=== PATIENT | female | born 1990 ===

== ENCOUNTER 2021-09-20 08:45 | Inpatient (IN) | payer OTHER ==
[~2021-09-20] VITALS: Ht 162.6 cm; Wt 3.2 kg
[2021-09-20] MEDS ORDERED: PRENATAL CAPLE1 EAC1 PO (22:40)
== END 2021-09-23 12:13 | disposition home or self-care (01) | DRG 788 ==
LOC: LDR 20:17 → OB/GYN 20:17 → O/R 22:41 → OB/GYN 22:57
PROVIDERS: ADMIT Obstetrics & Gynecology; ATTEND Obstetrics & Gynecology
PROC: 4A1HXFZ Monitoring of Products of Conception, Cardiac Rhythm, External Approach (ICD-10-PCS; 2021-09-20)
PROC: 10D00Z1 Extraction of Products of Conception, Low, Open Approach (ICD-10-PCS; principal; 2021-09-20 20:00)
DX: O82 Encounter for cesarean delivery without indication (principal); Z37.0 Single live birth; Z3A.40 40 weeks gestation of pregnancy

== ENCOUNTER → 2024-08-05 | Outpatient (CLI) | payer OTHER ==
[~2024-08-05] MED LIST: PRENATAL CAPLE1 EAC1 PO
== END | disposition home or self-care (01) ==
LOC: NST 15:55
PROVIDERS: ATTEND Obstetrics & Gynecology
DX: Z34.83 Encounter for supervision of other normal pregnancy, third trimester (principal)

== ENCOUNTER 2024-09-01 07:45 | Inpatient (IN) | payer OTHER ==
[~2024-09-01] VITALS: Ht 162.6 cm; Wt 81.6 kg
[2024-09-01 09:33] LABS: HEMATOCRIT 41.3 % (36.0-45.00); HEMOGLOBIN 14.5 g/dL (12.0-15.00); MEAN CELL VOLUME 99.5 fL (80.00-100.00); MEAN CORPUSCULAR HEMOGLOBIN 34.9 pg (27.00-32.0); MEAN CORPUSCULAR HGB CONC 35.1 g/dl (32.0-36.0); PLATELET COUNT 216 K/uL (150-450); RED BLOOD COUNT 4.15 M/uL (4.00-6.00); RED CELL DISTRIBUTION WIDTH 13.6 % (11.5-14.5)
[2024-09-01 09:35] LABS: PH,URINE 7.5 (5.0-8.0); URINE APPEARANCE Clear; URINE BILIRRUBIN Negative (NEGATIVE); URINE BLOOD Negative; URINE COLOR Yellow; URINE GLUCOSE Negative (NEGATIVE); URINE KETONE Negative (NEGATIVE); URINE LEUKOCYTE Trace; URINE NITRATE Negative; URINE PROTEIN Trace (NEGATIVE); URINE UROBILINOGEN 0.2 E.U./dl
[2024-09-01 09:39] LABS: URINE BACTERIA 2150.3 uL (0.0-1933); URINE EPITHELIAL CELLS 38.9 uL (0.0-38.8); URINE RBC 3.5 uL (0.0-20.8); URINE WBC 29.2 uL (0.0-23.2)
[2024-09-01 10:17] LABS: INR < 0.93; PROTHROMBIN TIME 9.8 SECONDS (9.0-11.5)
[2024-09-01 10:23] LABS: ALBUMIN 2.8 gm/dL (3.4-5.0); BILIRUBIN TOTAL 0.4 mg/dL (0.3-1.2); CREATININE SERUM 0.73 mg/dL (0.55-1.02); GFR 90.72; GLOBULINA 3.6 G/DL (2.4-3.5); POTASSIUM 4.22 mEq/L (3.5-5.1); TOTAL PROTEIN 6.4 gm/dL (6.4-8.2)
[2024-09-01 10:42] LABS: URINE CAST 0.14 uL (0.0-1.40)
[2024-09-08 09:08] VITALS: BP 124/71
[2024-09-08] MEDS ORDERED: CITRIC ACID/SODIUM CITRATE 30 ML BLIST.PACK PO ONE ×2 (12:11→12:30)
[2024-09-08] MEDS ORDERED: OXYTOCIN 10 UNITS/ML VIAL ONE ×2 (12:33→13:10)
[2024-09-08] MEDS ORDERED: CEFAZOLIN SODIUM 1,000 MG VIAL ONE (13:19)
[2024-09-08] MEDS ORDERED: CEFAZOLIN SODIUM 1,000 MG VIAL IV ONE (13:45)
[2024-09-08] MEDS ORDERED: OXYTOCIN 10 UNITS/ML VIAL IV ONE (14:15)
[2024-09-08] MEDS ORDERED: ERYTHROMYCIN BASE OPHT 1GM EACH TUBE OP ONE (16:15)
[2024-09-08] MEDS ORDERED: KETOROLAC TROMETHAMINE 30 MG VIAL ONE (18:00)
[2024-09-08] MEDS ORDERED: KETOROLAC TROMETHAMINE 30 MG VIAL IV NR (18:00)
[2024-09-08] MEDS ORDERED: MORPHINE SULFATE 4 MG/ML CARTRIDGE IV ONE (18:00)
[2024-09-08] MEDS ORDERED: MORPHINE SULFATE 4 MG/ML CARTRIDGE IV PRN (19:00)
[2024-09-08] MEDS ORDERED: IBUprofen 400 MG TABLET PO PRN (19:00)
[2024-09-08 20:10] VITALS: BP 127/85
[2024-09-09 00:31] VITALS: BP 120/77
[2024-09-09 04:00] VITALS: BP 120/73
[2024-09-09 08:10] VITALS: BP 129/82
[2024-09-09] MEDS ORDERED: KETOROLAC TROMETHAMINE 10 MG TABLET PO PRN (11:15)
[2024-09-09] MEDS ORDERED: OxyCODONE HCL 5 MG TABLET (ROXICODONE) PO PRN (11:15)
[2024-09-09] MEDS ORDERED: DOCUSATE CALCIUM 240 MG CAPSULE PO SCH (12:00)
[2024-09-09] MEDS ORDERED: GABAPENTIN 300 MG CAPSULE PO SCH (13:00)
[2024-09-09 13:33] LABS: HEMOGLOBIN 13.9 g/dL (12.0-15.00); MEAN CELL VOLUME 101.6 fL (80.00-100.00); MEAN CORPUSCULAR HEMOGLOBIN 34.5 pg (27.00-32.0); PLATELET COUNT 206 K/uL (150-450); RED BLOOD COUNT 4.03 M/uL (4.00-6.00); RED CELL DISTRIBUTION WIDTH 13.3 % (11.5-14.5)
[2024-09-09 15:59] VITALS: BP 125/77
[2024-09-09] MEDS ORDERED: SIMETHICONE 125 MG CAPSULE PO SCH (17:00)
[2024-09-10 01:16] VITALS: BP 99/65
[2024-09-10 07:56] VITALS: BP 127/83
[2024-09-10] MEDS ORDERED: KETO10TA2 PO (10:16)
[2024-09-10] MEDS ORDERED: PERCOCET 5-3251 EACH PO (10:17)
== END 2024-09-10 14:05 | disposition home or self-care (01) | DRG 788 ==
LOC: LDR 09-08 07:00 → O/R 09-08 12:32 → OB/GYN 09-08 15:00
PROVIDERS: ADMIT Obstetrics & Gynecology; ATTEND Obstetrics & Gynecology
PROC: 4A1HXCZ Monitoring of Products of Conception, Cardiac Rate, External Approach (ICD-10-PCS; 2024-09-08)
PROC: 10D00Z1 Extraction of Products of Conception, Low, Open Approach (ICD-10-PCS; principal; 2024-09-08 07:15)
DX: O34.211 Maternal care for low transverse scar from previous cesarean delivery (principal); Z3A.39 39 weeks gestation of pregnancy; Z37.0 Single live birth; Z20.822 Contact with and (suspected) exposure to COVID-19

== ENCOUNTER 2024-10-11 09:16 | Outpatient (CLI) | payer OTHER ==
[~2024-10-11 09:16] MED LIST changes: +KETO10TA2 PO; +PERCOCET 5-3251 EACH PO
== END 2024-10-11 09:26 | disposition home or self-care (01) ==
LOC: SONOGRAMA 09:16
PROVIDERS: ATTEND Obstetrics & Gynecology
DX: N63.11 Unspecified lump in the right breast, upper outer quadrant (principal); N63.12 Unspecified lump in the right breast, upper inner quadrant